=== PATIENT | male | born 1970 | race Caucasian/White ===

== ENCOUNTER 2021-07-07 16:59 | Emergency (ER) | payer OTHER, SELFPAY ==
[2021-07-07] MEDS ORDERED: Fentanyl 100 MCG/2 ML VIAL ONE ×2 (17:45→19:03)
[2021-07-07] MEDS ORDERED: Ketorolac Tromethamine 30 MG/ML VIAL ONE (18:33)
[2021-07-07] MEDS ORDERED: Cyclobenzaprine 10 MG TAB ONE (18:36)
[2021-07-07] MEDS ORDERED: Lidocaine 1% (PF) 30 ML VIAL ONE (18:37)
== END 2021-07-07 21:31 | disposition home or self-care (01) ==
LOC: NAV ERS 16:59
DX: S01.81XA Laceration without foreign body of other part of head, initial encounter (principal); S13.9XXA Sprain of joints and ligaments of unspecified parts of neck, initial encounter; S50.12XA Contusion of left forearm, initial encounter; F41.9 Anxiety disorder, unspecified; Z79.899 Other long term (current) drug therapy; V89.2XXA Person injured in unspecified motor-vehicle accident, traffic, initial encounter
CPT/HCPCS: 70450; 70486; 72125; 96374; 96375; 96376; J1885; J2001; J3010